=== PATIENT | male | born 1950 | race Caucasian/White ===

== ENCOUNTER 2016-11-12 19:19 | Inpatient (IN) | payer MEDICARE ==
[~2016-11-12] VITALS: Ht 180.3 cm; Wt 74.7 kg
[2016-11-12 19:28] VITALS: BP 122/70; PULSE 69; RESP 20; TEMP 97.9; O2SAT 91
[2016-11-12] MEDS ORDERED: MORPHINE SULFATE 4 MG/ML INJ IV PUSH ONE (19:45)
[2016-11-12] MEDS ORDERED: SODIUM CHLORIDE 0.9% FLUSH 10 ML FLUSH IVF PRN (19:45)
--- NOTE | 2016-11-12 19:46 | PD ---
HPI Chief Complaint: Fall Time Seen by Provider: 19:33 Travel History International Travel<30 days: No Contact w/Intl Traveler<30days: No Traveled to known affect area: No History of Present Illness HPI 66-year-old male with history of lung cancer, A. fib status post pacemaker/AICD , HTN here with complaint of leg pain. Patient states that he tripped, had a mechanical fall and landed on the right leg. Noted deformity and severe pain to the right hip/thigh region. EMS was summoned. Noted deformity in place patient in scoop stretcher and traction. Administered 10 mg morphine en route. Patient states that the pain has improved with this. He denies hitting his head, loss of consciousness, neck or back pain. Patient is anticoagulated on Plavix for history of A. fib. PFSH Past Medical History Atrial Fibrillation: Yes (pacer/defib) Cancer: Yes (lung) Diminished Hearing: No Hypertension: Yes Medical other: Yes (neuropathy) Tetanus Vaccination: < 5 Years Influenza Vaccination: Yes Past Surgical History Appendectomy: Yes Cardiac Surgery: Yes (pacer/defib) Cholecystectomy: Yes Tonsillectomy: Yes Social History Alcohol Use: Yes ("couple cocktails a day") Tobacco Use: Yes Substance Use: No Allergies-Medications (Allergen,Severity, Reaction): Coded Allergies: Acetaminophen (Verified Allergy, Severe, 11/12/16) edema and blisters Reported Meds & Prescriptions Reported Meds & Active Scripts Active Reported Trileptal (Oxcarbazepine) 150 Mg Tab 450 Mg PO TID Methadone (Methadone HCl) 10 Mg Tab 25 Mg PO QID Ativan (Lorazepam) 1 Mg Tab 1 Mg PO BID PRN [vitamin D] 10 Mg PO DAILY Amitriptyline (Amitriptyline HCl) 25 Mg Tab 25 Mg PO HS Furosemide 40 Mg Tab 40 Mg PO DAILY Plavix (Clopidogrel Bisulfate) 75 Mg Tab 75 Mg PO DAILY Levothyroxine (Levothyroxine Sodium) 75 Mcg Tab 75 Mcg PO DAILY Review of Systems Except as stated in HPI: all other systems reviewed are Neg Physical Exam Narrative GENERAL: Elderly male in no acute distress SKIN: Focused skin assessment warm/dry. HEAD: Atraumatic. Normocephalic. EYES: Pupils equal and round. No scleral icterus. No injection or drainage. ENT: No nasal bleeding or discharge. Mucous membranes pink and moist. NECK: Supple without midline tenderness to palpation CARDIOVASCULAR: Regular rate and rhythm. No murmur appreciated. Pacemaker left upper chest RESPIRATORY: No accessory muscle use. Clear to auscultation. Breath sounds equal bilaterally. GASTROINTESTINAL: Abdomen soft, non-tender, nondistended. MUSCULOSKELETAL: Bilateral upper and left lower extremity unremarkable. Pelvis is stable AP and lateral compression. Right lower extremity reveals deformity around the right hip and thigh. Tenderness to palpation and pain with any range of motion within this region. No tenderness to palpation of the knee, tib -fib, ankle or foot. Distal sensation and pulses intact. NEUROLOGICAL: Awake and alert. Normal speech. PSYCHIATRIC: Appropriate mood and affect; insight and judgment normal. Data Data Last Documented VS Vital Signs Date Time Temp Pulse Resp B/P Pulse Ox O2 Delivery O2 Flow Rate FiO2 11/12/16 19:33 93 Nasal Cannula 2 11/12/16 19:28 97.9 69 20 122/70 Orders Electrocardiogram (11/12/16 19:36) Complete Blood Count With Diff (11/12/16 19:36) Comprehensive Metabolic Panel (11/12/16 19:36) Prothrombin Time / Inr (Pt) (11/12/16 19:36) Act Partial Throm Time (Ptt) (11/12/16 19:36) Urinalysis - C+S If Indicated (11/12/16 19:36) Type And Screen (11/12/16 19:36) Chest, Single Ap (11/12/16 19:36) Femur (Ap & Lat/2vws) (11/12/16 19:36) Hip, Uni(Ap&Lat) W Ap Pelvis (11/12/16 19:36) Iv Access Insert/Monitor (11/12/16 19:36) Oximetry (11/12/16 19:36) Ice/Cold Pack (11/12/16 19:36) Ecg Monitoring (11/12/16 19:36) Morphine Inj (Morphine Inj) (11/12/16 19:45) Sodium Chloride 0.9% Flush (Ns Flush) (11/12/16 19:45) Support Splint (11/12/16 20:17) Potassium Chloride (Kcl) (11/12/16 20:45) Calcium Gluconate Inj (Calcium Gluconate (11/12/16 20:45) Calcium Gluconate (Calcium Gluconate) (11/12/16 20:45) Consult Orthopedic (11/12/16 ) Npo After Midnight W/ Po Meds (11/13/16 Breakfast) Labs Laboratory Tests Test 11/12/16 19:40 White Blood Count 9.7 TH/MM3 Red Blood Count 4.20 MIL/MM3 Hemoglobin 13.7 GM/DL Hematocrit 41.1 % Mean Corpuscular Volume 97.7 FL Mean Corpuscular Hemoglobin 32.5 PG Mean Corpuscular Hemoglobin 33.3 % Concent Red Cell Distribution Width 14.0 % Platelet Count 352 TH/MM3 Mean Platelet Volume 8.9 FL Neutrophils (%) (Auto) 74.0 % Lymphocytes (%) (Auto) 15.1 % Monocytes (%) (Auto) 8.8 % Eosinophils (%) (Auto) 1.5 % Basophils (%) (Auto) 0.6 % Neutrophils # (Auto) 7.2 TH/MM3 Lymphocytes # (Auto) 1.5 TH/MM3 Monocytes # (Auto) 0.9 TH/MM3 Eosinophils # (Auto) 0.1 TH/MM3 Basophils # (Auto) 0.1 TH/MM3 CBC Comment DIFF FINAL Differential Comment Prothrombin Time 11.4 SEC Prothromb Time International 1.0 RATIO Ratio Activated Partial 28.4 SEC Thromboplast Time Sodium Level 137 MEQ/L Potassium Level 2.7 MEQ/L Chloride Level 98 MEQ/L Carbon Dioxide Level 28.7 MEQ/L Anion Gap 10 MEQ/L Blood Urea Nitrogen 11 MG/DL Creatinine 0.85 MG/DL Estimat Glomerular Filtration 90 ML/MIN Rate Random Glucose 76 MG/DL Calcium Level 7.4 MG/DL Protein Corrected Calcium 7.4 MG/DL Total Bilirubin 0.2 MG/DL Aspartate Amino Transf 31 U/L (AST/SGOT) Alanine Aminotransferase 27 U/L (ALT/SGPT) Alkaline Phosphatase 147 U/L Total Protein 7.2 GM/DL Albumin 2.7 GM/DL Blood Type O POSITIVE Antibody Screen NEGATIVE Blood Bank Comment [facility] Medical Decision Making Medical Screen Exam Complete: Yes Emergency Medical Condition: Yes Medical Record Reviewed: Yes Differential Diagnosis 66-year-old male with history of lung cancer, A. fib on Plavix here with right leg pain status post mechanical fall. Differential includes femur fracture, hip fracture, pelvic fracture, pathologic fracture. Narrative Course Patient placed on monitor, IV established and blood obtained. Given 4 mg morphine. Twelve-lead EKG showed paced rhythm. CBC, CMP, coags, type and screen, urinalysis notable for potassium 2.7, calcium 7.4. Replaced with 80 mEq potassium orally, 1 g calcium gluconate IV as well as 500 mg cocaine gluconate orally. X-rays of the chest, pelvis, right hip and femur showed midshaft femur fracture. Left perihilar airspace disease on chest x-ray. I spoke with the orthopedic surgeon Dr. Wakefield who will plan to fix patient tomorrow. Request nothing by mouth after midnight. Patient was placed in [place]' s traction and will be admitted to medicine. Diagnosis Primary Impression: Right femoral fracture Additional Impressions: Hypokalemia Hypocalcemia Fall Qualified Code: W19.XXXA - Fall, initial encounter Atrial fibrillation Qualified Code: I48.2 - Chronic atrial fibrillation Admitting Information Admitting Physician Requests: Admit Maryuri López MD Nov 12, 2016 19:46
[2016-11-12] MEDS ORDERED: METH10TA PO ×2 (19:55→19:57)
[2016-11-12] MEDS ORDERED: PLAV75TA29 PO (19:55)
[2016-11-12] MEDS ORDERED: TRIL150T PO ×2 (19:55→19:57)
[2016-11-12] MEDS ORDERED: AMIT25TA9 PO (19:55)
[2016-11-12] MEDS ORDERED: LORA-474 PO (19:55)
[2016-11-12] MEDS ORDERED: FURO40TA PO (19:55)
[2016-11-12] MEDS ORDERED: vitamin D PO (19:55)
[2016-11-12] MEDS ORDERED: LEVO75TA3 PO (19:55)
[2016-11-12 20:20] VITALS: BP 130/74; PULSE 78; RESP 18; O2SAT 96
--- NOTE | 2016-11-12 20:22 | RADRPT ---
EXAM DATE/TIME: 11/12/2016 19:56 [facility] COMPARISON: No previous studies available for comparison. INDICATIONS : Trauma. Patient fell on right side today. MEDICAL HISTORY : Hypertension. Carcinoma, lung. Smoker. SURGICAL HISTORY : Pacemaker. Cholecystectomy. Appendectomy. ENCOUNTER: Initial ACUITY: 1 day PAIN SCORE: 0/10 LOCATION: Bilateral chest FINDINGS: Patient is overlie right atrium, right ventricle and coronary sinus. There is mild left perihilar and left basilar airspace disease. No effusion or pneumothorax. Heart size within normal limits. Tortuou s aorta. CONCLUSION: 1. Left perihilar airspace disease. No effusion or pneumothorax. Tobi Slater MD on November 12, 2016 at 20:19 Board Certified Radiologist. This report was verified electronically.
[2016-11-12 20:33] LABS: AUTOMATED NEUTROPHIL # 7.2 TH/MM3 (1.8-7.7); BASOPHIL # 0.1 TH/MM3 (0-0.2); BASOPHIL % 0.6 % (0.0-2.0); EOSINOPHIL # 0.1 TH/MM3 (0-0.4); EOSINOPHIL % 1.5 % (0.0-4.0); HEMATOCRIT 41.1 % (39.0-51.0); HEMO FLAGS DIFF FINAL; LYMPH % 15.1 % (9.0-44.0); LYMPHOCYTE # 1.5 TH/MM3 (1.0-4.8); MEAN CELL VOLUME 97.7 FL (80.0-100.0); MEAN CORPUSCULAR HEMOGLOBIN 32.5 PG (27.0-34.0); MEAN CORPUSCULAR HGB CONC 33.3 % (32.0-36.0); MONO % 8.8 % (0.0-8.0); PLATELET COUNT 352 TH/MM3 (150-450); WHITE BLOOD COUNT 9.7 TH/MM3 (4.0-11.0)
[2016-11-12 20:37] LABS: BICARBONATE 28.7 MEQ/L (21.0-32.0); TOTAL BILIRUBIN ADULT 0.2 MG/DL (0.2-1.0)
[2016-11-12 20:39] LABS: POTASSIUM 2.7 MEQ/L (3.5-5.1)
[2016-11-12 20:40] LABS: CALCIUM-PROTEIN CORRECTED 7.4 MG/DL (8.5-10.1)
[2016-11-12 20:41] LABS: APTT (PATIENT) 28.4 SEC (24.3-30.1); PROTHROMBIN TIME - PATIENT 11.4 SEC (9.8-11.6)
[2016-11-12] MEDS ORDERED: CALCIUM GLUCONATE 10% 1 GM/10 ML VIAL IV PUSH ONE (20:45)
[2016-11-12] MEDS ORDERED: POTASSIUM CHLORIDE 20 MEQ CONTROLLED RELEASE TAB PO ONE (20:45)
[2016-11-12] MEDS ORDERED: CALCIUM GLUCONATE 500 MG TAB PO ONE (20:45)
[2016-11-12 21:15] VITALS: BP 138/76; PULSE 70; RESP 18; O2SAT 96
--- NOTE | 2016-11-12 21:30 | RADRPT ---
EXAM DATE/TIME: 11/12/2016 19:50 [facility] COMPARISON: No previous studies available for comparison. INDICATIONS : Right femur pain after fall. MEDICAL HISTORY : None. SURGICAL HISTORY : Prior surgery to knee. ENCOUNTER: Initial ACUITY: 1 day PAIN SCORE: 10/10 LOCATION: Right femur. FINDINGS: There is a fracture through the midshaft of the right femur with about one shaft width displacement a nd mild angular deformity. Extensive vascular calcifications noted in the femoral and popliteal arter y. There is previous ACL repair. CONCLUSION: 1. Fracture midshaft right femur. Tobi Slater MD on November 12, 2016 at 21:27 Board Certified Radiologist. This report was verified electronically.
--- NOTE | 2016-11-12 21:42 | RADRPT ---
EXAM DATE/TIME: 11/12/2016 19:47 [facility] COMPARISON: No previous studies available for comparison. INDICATIONS : Trauma. Right leg pain after fall. MEDICAL HISTORY : None. SURGICAL HISTORY : Stents. ENCOUNTER: Initial ACUITY: 1 day PAIN SCORE: 10/10 LOCATION: Right femur. FINDINGS: No fracture at the right hip. There is a mid shaft right femur fracture. 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 CONCLUSION: 1. No hip fracture. Mid shaft right femur fracture. Right iliac artery stent present. Surgical clips in the inguinal regions bilaterally. Tobi Slater MD on November 12, 2016 at 21:40 Board Certified Radiologist. This report was verified electronically.
--- NOTE | 2016-11-12 21:51 | HHI.HP ---
[facility] Primary Care Physician No Primary Care Physician Admission Diagnosis R midshaft femur fx Diagnoses: (1) Fall Diagnosis: Principal (2) Right femoral fracture Diagnosis: Principal (3) Hypocalcemia Diagnosis: Principal (4) Hypokalemia Diagnosis: Principal (5) Tobacco abuse Diagnosis: Principal Travel History International Travel<30 Days: No Contact w/Intl Traveler <30 Da: No Traveled to Known Affected Are: No History of Present Illness This is a 66-year-old male with a PMH of HTN, A. fib, Lung CA and Tobacco Abuse who was brought to the ER by EMS secondary to right leg pain following fall. Per pt he had mechanical trip and fall while walking on sidewalk, landed on right leg w/ immediate complaints of pain. No LOC or head trauma reported. On arrival, BP 122/70, HR 69, O2 sat 91% on RA, Afebrile. CBC essentially unremarkable. K+ 2.7. Ca 7.4. INR 1.0. UA negative. CXR with left perihilar airspace disease, no effusion or pneumonia. Femur X-ray with fracture midshaft right femur. Hip/Pelvis X-ray with no hip fracture, midshaft right femur fracture, right iliac artery stent present. Dr. Wakefield consulted by ER physician, plan is for surgical intervention in a.m. Review of Systems Except as stated in HPI: all other systems reviewed are Neg ROS: 14 point review of systems otherwise negative. Past Family Social History Past Medical History PMH: HTN, A. fib, Lung CA and Tobacco Abuse Past Surgical History PAST SURGICAL HISTORY: Appendectomy, Cholecystectomy, Pacemaker Allergies: Coded Allergies: Acetaminophen (Verified Allergy, Severe, 11/12/16) edema and blisters Family History PAST FAMILY HISTORY: Reviewed. No h/o DM or CAD Social History PAST SOCIAL HISTORY: Positive for alcohol. Positive for tobacco. Negative for drugs. Physical Exam Vital Signs Vital Signs Date Time Temp Pulse Resp B/P Pulse Ox O2 Delivery O2 Flow Rate FiO2 11/12/16 19:33 93 Nasal Cannula 2 11/12/16 19:28 97.9 69 20 122/70 91 Physical Exam PE: GENERAL: Middle-aged white male in no acute distress. HEENT: PERRLA, EOMI. No scleral icterus or conjunctival pallor. No lid lag or facial droop. CARDIOVASCULAR: Regular rate and rhythm. No obvious murmurs to auscultation. No chest tenderness to palpation. RESPIRATORY: No obvious rhonchi or wheezing. Clear to auscultation. Breath sounds equal bilaterally. GASTROINTESTINAL: Abdomen soft, non-tender, nondistended. BS normal. MUSCULOSKELETAL: Extremities without clubbing, cyanosis, or edema. No obvious deformities. Decreased ROM of RLE due to injury. NEUROLOGICAL: Awake, alert and oriented x4. No focal neurologic deficits. Moving both upper and lower extremities spontaneously. Laboratory Laboratory Tests Test 11/12/16 19:40 White Blood Count 9.7 Red Blood Count 4.20 Hemoglobin 13.7 Hematocrit 41.1 Mean Corpuscular Volume 97.7 Mean Corpuscular Hemoglobin 32.5 Mean Corpuscular Hemoglobin 33.3 Concent Red Cell Distribution Width 14.0 Platelet Count 352 Mean Platelet Volume 8.9 Neutrophils (%) (Auto) 74.0 Lymphocytes (%) (Auto) 15.1 Monocytes (%) (Auto) 8.8 Eosinophils (%) (Auto) 1.5 Basophils (%) (Auto) 0.6 Neutrophils # (Auto) 7.2 Lymphocytes # (Auto) 1.5 Monocytes # (Auto) 0.9 Eosinophils # (Auto) 0.1 Basophils # (Auto) 0.1 CBC Comment DIFF FINAL Differential Comment Prothrombin Time 11.4 Prothromb Time International 1.0 Ratio Activated Partial 28.4 Thromboplast Time Sodium Level 137 Potassium Level 2.7 Chloride Level 98 Carbon Dioxide Level 28.7 Anion Gap 10 Blood Urea Nitrogen 11 Creatinine 0.85 Estimat Glomerular Filtration 90 Rate Random Glucose 76 Calcium Level 7.4 Protein Corrected Calcium 7.4 Total Bilirubin 0.2 Aspartate Amino Transf 31 (AST/SGOT) Alanine Aminotransferase 27 (ALT/SGPT) Alkaline Phosphatase 147 Total Protein 7.2 Albumin 2.7 Blood Type O POSITIVE Antibody Screen NEGATIVE Blood Bank Comment Result Diagram: 11/12/16193911/12/161939 Assessment and Plan Problem List: (1) Fall ICD Code: W19.XXXA Status: Acute (2) Right femoral fracture ICD Code: S72.91XA Status: Acute (3) Hypokalemia ICD Code: E87.6 Status: Acute (4) Hypocalcemia ICD Code: E83.51 Status: Acute (5) Tobacco abuse ICD Code: Z72.0 Status: Acute Assessment and Plan A/P: 1. Fall: s/p mechanical trip and fall, no LOC or head trauma reported. 2. Right Femur Fx: secondary to above, Femur X-ray w/ fracture mid shaft right femur. Hip/Pelvis X-ray with no hip fracture, midshaft right femur fracture, images reviewed by me. Dr. Wakefield consulted by ER physician, plan is for surgical intervention in a.m. NPO, IVF, analgesics/antiemetics as needed. 3. Hypokalemia: K+ 2.7, s/p replacement in ER. Will recheck and replace as needed. 4. Hypocalcemia: Ca 7.4, corrected 7.4, s/p replacement in ER. Recheck labs in am and replace as needed. 5. Tobacco Abuse: Pt counselled. NicoDerm prn if needed. 6. DVT Prophylaxis: Anticoagulation post-op per Ortho 7. Social work for d/c planning as needed. 8. Case discussed w/ ER physician at length. Physician Certification 2 Midnight Certification Type: Admission for Inpatient Services Order for Inpatient Services The services are ordered in accordance with Medicare regulations or non- Medicare payer requirements, as applicable. In the case of services not specified as inpatient-only, they are appropriately provided as inpatient services in accordance with the 2-midnight benchmark. Estimated LOS (days): 2 days is the estimated time the patient will need to remain in the hospital, assuming treatment plan goals are met and no additional complications. Post-Hospital Plan: Not yet determined Problem Qualifiers (1) Fall: Qualified Code: W19.XXXA - Fall, initial encounter (2) Right femoral fracture: Margo Aceves MD Nov 12, 2016 21:51
[2016-11-12] MEDS ORDERED: LORazepam 1 MG TAB PO PRN (22:00)
[2016-11-12] MEDS ORDERED: SENNOSIDES 8.6 MG TAB PO PRN (22:00)
[2016-11-12] MEDS ORDERED: ONDANSETRON HCL 4 MG/2 ML VIAL IVP PRN (22:00)
[2016-11-12] MEDS ORDERED: BISACODYL 10 MG SUPP RECTAL PRN (22:00)
[2016-11-12] MEDS ORDERED: LACTULOSE SYRUP 20 GM/30 ML CUP PO PRN (22:00)
[2016-11-12] MEDS ORDERED: MAGNESIUM HYDROXIDE SUSP 30 ML CUP PO PRN (22:00)
[2016-11-12] MEDS ORDERED: SODIUM CHLORIDE 0.9% FLUSH 10 ML FLUSH IV FLUSH PRN (22:00)
[2016-11-12] MEDS: SODIUM CHLOR 0.9% 1000 ML INJ 1,000 ML IV SCH (22:30)
[2016-11-12 22:31] VITALS: BP 120/68; PULSE 75; RESP 18; O2SAT 97
[2016-11-12] MEDS: MORPHINE SULFATE 4 MG/ML INJ IV PRN (22:31)
[2016-11-12 22:43] LABS: BLOOD, URINE NEG (NEG); GLUCOSE,URINE NEG (NEG); HYALINE CAST, URINE 2 /lpf (RARE); KETONE, URINE NEG (NEG); NITRITE,URINE NEG (NEG); PH, URINE 6.5 (5.0-8.5); URINE COLOR YELLOW (YELLW/STRAW)
[2016-11-12 22:45] LABS: COMMENT (UR) CATH-CULT NOT IND; CULTURE IF INDICATED CATH CULTURE NOT IND
[2016-11-12 23:41] VITALS: BP 137/67
[2016-11-13] VITALS (7 sets, daily range): BP systolic 112–148; BP diastolic 64–73; PULSE 61–69; RESP 17–18; TEMP 96.6–98.7; O2SAT 92–98
[2016-11-13] MEDS: MORPHINE SULFATE 4 MG/ML INJ IV PRN ×2 (01:40→06:07)
[2016-11-13] MEDS: LEVOTHYROXINE SODIUM 75 MCG TAB PO SCH (03:13)
[2016-11-13] MEDS ORDERED: GENTAMICIN SULFATE 80 MG/2 ML VIAL ONE (06:02)
[2016-11-13] MEDS ORDERED: FAMOTIDINE 20 MG/2 ML VIAL ONE (07:37)
[2016-11-13] MEDS: SODIUM CHLOR 0.9% 1000 ML INJ 1,000 ML IV SCH ×2 (07:42→15:22)
[2016-11-13] MEDS: METHADONE HCL 10 MG TAB PO SCH ×4 (07:43→20:58)
[2016-11-13] MEDS: FUROSEMIDE 40 MG TAB PO SCH (07:43)
[2016-11-13] MEDS ORDERED: ceFAZolin 2 GM PREMIX 50 ML ONE (08:20)
[2016-11-13] MEDS ORDERED: VANCOMYCIN HCL 1000 MG VIAL ONE (08:20)
[2016-11-13] MEDS ORDERED: ENOX30P SQ (08:22)
[2016-11-13] MEDS ORDERED: OXYC-395 PO (08:23)
[2016-11-13] MEDS ORDERED: NALOXONE HCL 0.4 MG/ML AMP IV PRN (08:30)
[2016-11-13] MEDS ORDERED: MISCELLANEOUS NURSING INFORMATION XX PRN (08:30)
[2016-11-13] MEDS ORDERED: Post-op Orders (for Pharmacy) MISC XX ONE (08:30)
[2016-11-13] MEDS ORDERED: diphenhydrAMINE HCL 25 MG CAP PO PRN (08:30)
[2016-11-13] MEDS ORDERED: MAGNESIUM HYDROXIDE SUSP 30 ML CUP PO PRN (08:30)
[2016-11-13] MEDS ORDERED: ONDANSETRON HCL 4 MG/2 ML VIAL IVP PRN (08:30)
[2016-11-13] MEDS ORDERED: MISCELLANEOUS PHARMACY INFORMATION XX ONE (08:30)
[2016-11-13] MEDS ORDERED: TRANEXAMIC ACID INJ 1,000 MG/10 ML AMP ONE (08:50)
[2016-11-13] MEDS: MULTIVITAMINS/MINERALS THERAPEUTIC TAB PO SCH (09:00)
[2016-11-13] MEDS: DOCUSATE SODIUM 50 MG/SENNA 8.6 MG TAB PO SCH ×2 (09:00→20:57)
[2016-11-13] MEDS ORDERED: SODIUM CHLORIDE 0.9% FLUSH 10 ML FLUSH IV FLUSH SCH (09:00)
[2016-11-13] MEDS ORDERED: DOCUSATE SODIUM 50 MG/SENNA 8.6 MG TAB PO SCH (09:00)
[2016-11-13] MEDS: SODIUM CHLORIDE 0.9% FLUSH 5 ML FLUSH IVF SCH (09:00)
--- NOTE | 2016-11-13 09:13 | MB ---
cc: CHILO DEE M.D. DATE OF CONSULTATION: 11/13/2016 REASON FOR CONSULTATION Right femur fracture. HISTORY OF PRESENT ILLNESS The patient is a 66-year-old male with past history of hypertension, atrial fibrillation, lung cancer and tobacco abuse, brought to the emergency room at [facility] after a fall. He was complaining of severe pain in the right leg and thigh region. He had mechanical trip on a sidewalk, he was unable to stand or bear weight. Pain was severe with worsening symptoms with any movement of the leg or attempted bearing of weight. He denies loss of consciousness or hitting his head. X-rays of the right femur shows a displaced right femoral shaft fracture. He has been admitted to medical service, orthopedic surgery was consulted for further evaluation and management of this injury and condition. PAST MEDICAL HISTORY Significant for: 1. Hypertension. 2. Atrial fibrillation. 3. Lung cancer. 4. Tobacco abuse. 5. History of peripheral vascular disease. 6. History of right iliac artery stenting. 7. History of appendectomy. 8. Cholecystectomy. 9. Pacemaker. ALLERGIES Include ACETAMINOPHEN. FAMILY HISTORY Reviewed and noncontributory. SOCIAL HISTORY Positive for alcohol and tobacco, negative for drugs. REVIEW OF SYSTEMS Review of systems are negative for 12 systems other than HPI. MEDICATIONS Include: 1. Methadone. 2. Ativan. 3. Amitriptyline. 4. Lasix. 5. Plavix. 6. Levothyroxine. PHYSICAL EXAMINATION GENERAL: The patient is awake, alert, lying in bed, in mild distress. HEENT: Normocephalic, atraumatic. Pupils are round. Extraocular muscles intact. NECK: Neck is supple. LUNGS: Clear. HEART: Regular rate and rhythm. ABDOMEN: Soft, nontender. EXTREMITIES: Right leg is currently in skeletal traction. He can flex his ankle and toes distally. He has swelling of the right thigh, his compartments are still soft. His mood and affect is appropriate. NEUROLOGIC: Exam is nonfocal. VITAL SIGNS: Temperature 97.9, pulse 69, respiration 20, blood pressure 120/70. IMAGING STUDIES X-ray of the right femur shows a displaced right femoral shaft fracture. LABORATORY DATA White blood cell count is 9.7, hemoglobin is 13, hematocrit 41, platelet count 352, potassium 2.7, creatinine 0.85. IMPRESSION A 66-year-old male with past history of atrial fibrillation on Plavix, history of lung cancer, tobacco and alcohol abuse, peripheral vascular disease status post fall, right femur fracture. PLAN Discussed diagnosis with the patient and treatment options of nonoperative treatment versus surgery, spoke about the option of open reduction, internal fixation with intramedullary nailing of the right femur fracture. The risk of surgery was discussed which included but not limited to anesthesia, bleeding, infection, damage to nerves, blood vessels, pain, stiffness, failure of components, blood clots, pulmonary embolism and even . The patient's pain is severe, he favored the benefits over the risks and did wish to proceed with surgical intervention. Written consent has been obtained and the surgical site has been marked. MD MADI Fleming/SRI /8:24 AM /8:46 AM
[2016-11-13] MEDS ORDERED: RESP: ALBUTEROL 1.25 MG/3 ML NEB (PRN) ONE (09:25)
--- NOTE | 2016-11-13 09:55 | RADRPT ---
EXAM DATE/TIME: 11/13/2016 09:32 [facility] COMPARISON: FEMUR RIGHT (AP & LAT/2VWS), November 12, 2016, 19:50. INDICATIONS : Surgical repair. MEDICAL HISTORY : None. SURGICAL HISTORY : None. ENCOUNTER: Initial ACUITY: 1 day PAIN SCORE: Non-responsive. LOCATION: Right femur. FINDINGS: 6 spot fluoroscopic images obtained in the operating room during a procedure demonstrates placement o f an antegrade intramedullary wanda with distal interlocking screws and a proximal femoral head and nec k screw. The wanda traverses the mid femoral diaphyseal fracture and there is improved anatomic alignme nt. A bone anchor remains present in the distal femur. CONCLUSION: Improved anatomic alignment following right femur ORIF. Richmond Lopez MD on November 13, 2016 at 9:52 Board Certified Radiologist. This report was verified electronically.
[2016-11-13] MEDS ORDERED: DO NOT ADM ANY ANTICOAGULANT DRUGS PRN (10:02)
[2016-11-13] MEDS: DEXT 5%-NACL 0.45% 1000 ML INJ 1,000 ML IV SCH ×2 (10:15→15:28)
[2016-11-13] MEDS ORDERED: fentaNYL CITRATE 250 MCG/5 ML AMP ONE (10:36)
[2016-11-13] MEDS ORDERED: MIDAZOLAM HCL 2 MG/2 ML VIAL ONE (10:36)
--- NOTE | 2016-11-13 11:33 | MP ---
cc: CHILO DEE M.D. DATE OF SURGERY: PREOPERATIVE DIAGNOSIS: Right femoral shaft fracture. POSTOPERATIVE DIAGNOSES: Right femoral shaft fracture. OPERATIVE PROCEDURE PERFORMED: Open reduction internal fixation with intramedullary nailing right femoral shaft fracture. SURGEON: Chilo Dee M.D. TUBE BUILDER: Khloe Agosto ANESTHESIA: General. ESTIMATED BLOOD LOSS: 200 cc. COMPLICATIONS: None. IMPLANTS USED: Synthes. JUSTIFICATION FOR THE PROCEDURE: This patient is a 66-year-old male who fell and sustained a displaced right femoral shaft fracture. He was taken to the [facility] Emergency Room. X-rays confirmed the above-named findings. Orthopedic surgery was consulted. The patient was counselled as to the risks, benefits and alternatives to the above-named proposed surgical procedure and did wish to proceed with surgery. DESCRIPTION OF THE PROCEDURE IN DETAIL: A written consent was obtained. The patient was identified by name and taken to the operating room and placed supine. General anesthesia was administered as well as 2 grams of IV Ancef and 1 gram of IV Vancomycin. The right foot was placed in a padded traction boot. The left leg was placed in a padded well leg crane. All bony prominences and pressure points were well padded. The right lower extremity was prepped and draped using isopropyl alcohol, Hibiclens solution and DuraPrep solution. After a time out was performed, a longitudinal incision was made over the lateral aspect of the right hip. The fascial layer was incised. A guidewire was used to gain entrance into the intramedullary canal of the femur. A cannulated entry reamer and subsequently a long beaded tip guidewire was placed down the intramedullary canal of the femur. Multiple reduction maneuvers were performed to allow for passage of the guidewire and longitudinal traction to assist with reduction of the fracture. Subsequently sequential reaming began with a size 8.5 and was carried through to size 13 and subsequently a Synthes 12 x 400 mm titanium trochanteric femoral nail was inserted into the intramedullary canal of the femur. The 130 degree locking jig was used to place a guide pin centered in the femoral head on the AP and lateral fluoroscopic projections followed by placement of a 90 mm spiral blade. The top locking screw was then secured with a fixed angle construct distally. The fluoroscopic perfect [place] technique was used to place a lateral to medial transverse locking screw. Fluoroscopic imaging confirmed hardware placement and fracture reduction. The surgical wound was thoroughly irrigated with sterile saline solution. The fascial layer was closed with #1 Vicryl stitch, subcutaneous layer with 2-0 Vicryl. The skin was closed with Dermabond. Sterile dressings were applied. The patient tolerated the procedure well. No intraoperative complications noted. NOTE Alvaro Zamora, physician assistant producer-certified, was present during the entire procedure to include patient positioning and the procedure itself. The medical necessity of a physician assistant producer was indicated in this case due to the complexity of the procedure itself. He assisted with appropriate manipulation of the leg and also retraction of muscle, tendon, bone and neurovascular structures. He also assisted with fracture reduction as well as implantation of the internal fixation device. MD MADI Fleming/ISMAEL /9:42 AM /11:12 AM
[2016-11-13] MEDS ORDERED: PHENYLEPH/NS 1000 MCG/10 ML SYR IV ONE (12:00)
[2016-11-13] MEDS ORDERED: PROPOFOL 200 MG/20 ML AMP IV ONE (12:00)
[2016-11-13] MEDS ORDERED: ePHEDrine/NS 25 MG/5 ML SYR IV ONE (12:00)
[2016-11-13] MEDS ORDERED: ONDANSETRON HCL 4 MG/2 ML VIAL IV PUSH ONE (12:00)
[2016-11-13] MEDS ORDERED: LACTATED RINGER'S 1000 ML INJ 1,000 ML IV ONE (12:00)
[2016-11-13] MEDS: MORPHINE SULFATE 4 MG/ML INJ IV PUSH PRN ×3 (12:56→20:58)
[2016-11-13 15:22] LABS: AUTOMATED NEUTROPHIL # 16.1 TH/MM3 (1.8-7.7); BASOPHIL % 0.1 % (0.0-2.0); HEMATOCRIT 37.5 % (39.0-51.0); HEMO FLAGS DIFF FINAL; LYMPHOCYTE # 0.3 TH/MM3 (1.0-4.8); MEAN CELL VOLUME 98.1 FL (80.0-100.0); MEAN CORPUSCULAR HEMOGLOBIN 32.5 PG (27.0-34.0); MEAN CORPUSCULAR HGB CONC 33.1 % (32.0-36.0); MONO % 3.8 % (0.0-8.0); NEUT % 94.1 % (16.0-70.0); PLATELET COUNT 310 TH/MM3 (150-450); RED BLOOD COUNT 3.82 MIL/MM3 (4.50-5.90); RED CELL DISTRIBUTION WIDTH 14.3 % (11.6-17.2); WHITE BLOOD COUNT 17.1 TH/MM3 (4.0-11.0)
[2016-11-13 15:39] LABS: ALKALINE PHOSPHATASE 130 U/L (45-117); ALT (GPT) 27 U/L (12-78); ANION GAP 7 MEQ/L (5-15); AST (GOT) 27 U/L (15-37); BICARBONATE 29.7 MEQ/L (21.0-32.0); BLOOD UREA NITROGEN 10 MG/DL (7-18); CHLORIDE 101 MEQ/L (98-107); GLOMERULAR FILTRATION RATE 88 ML/MIN (>89); POTASSIUM 3.5 MEQ/L (3.5-5.1); SODIUM (NA) 138 MEQ/L (136-145); TOTAL BILIRUBIN ADULT 0.4 MG/DL (0.2-1.0)
--- NOTE | 2016-11-13 17:56 | EKG ---
Date Performed: 11/12/2016 Time Performed: 21:19:00 PTAGE: 66 years EKG: ELECTRONIC VENTRICULAR PACEMAKER ABNORMAL RHYTHM ECG NO PREVIOUS TRACING DOCTOR: Saji Berger Interpretating Date/Time 11/13/2016 17:55:37
--- NOTE | 2016-11-13 18:54 | HHI.PR ---
Subjective Remarks patient states pain is uncontrolled sp ORIF of right femorl shaft fracture denies nausea/vomiting denies cp/sob Objective Vitals Vital Signs Date Time Temp Pulse Resp B/P Pulse Ox O2 Delivery O2 Flow Rate FiO2 11/13/16 16:02 98 21 11/13/16 16:00 97.4 61 18 112/67 92 11/13/16 12:30 93 Nasal Cannula 3.00 11/13/16 12:00 96.6 64 18 130/67 97 11/13/16 10:30 98.0 68 14 124/61 95 Nasal Cannula 2 11/13/16 10:15 75 16 123/59 98 Nasal Cannula 2 11/13/16 10:00 98.2 80 17 123/60 99 Simple Mask 6 11/13/16 04:10 98.5 65 17 148/71 93 11/13/16 00:20 98.7 69 17 134/73 94 11/12/16 23:41 68 18 137/67 95 11/12/16 22:31 75 18 120/68 97 Nasal Cannula 2 11/12/16 21:15 70 18 138/76 96 Nasal Cannula 2 11/12/16 20:20 78 18 130/74 96 Nasal Cannula 2 11/12/16 19:33 93 Nasal Cannula 2 11/12/16 19:28 97.9 69 20 122/70 91 I/O 11/12/16 11/12/16 11/12/16 11/13/16 11/13/16 11/13/16 06:59 14:59 22:59 06:59 14:59 22:59 Intake Total 630 ml 2060 ml Output Total 450 ml 50 ml Balance 180 ml 2010 ml Intake Oral 0 ml 960 ml IV Total 630 ml Other 1100 ml Output Urine Total 450 ml Estimated Blood Loss 50 ml # Voids 2 # Bowel Movements 0 0 Result Diagram: 11/13/16 1426 11/13/16 1426 Imaging Last Impressions Femur X-Ray 11/13/16 0000 Signed Impressions: Service Date/Time: Sunday, November 13, 2016 09:32 - CONCLUSION: Improved anatomic alignment following right femur ORIF. Richmond Lopez MD Hip and Pelvis X-Ray 11/12/16 1936 Signed Impressions: Service Date/Time: Saturday, November 12, 2016 19:47 - CONCLUSION: 1. No hip fracture. Mid shaft right femur fracture. Right iliac artery stent present. Surgical clips in the inguinal regions bilaterally. Tobi Slater MD Chest X-Ray 11/12/161935 Signed Impressions: Service Date/Time: Saturday, November 12, 2016 19:56 - CONCLUSION: 1. Left perihilar airspace disease. No effusion or pneumothorax. Tobi Slater MD Objective Remarks AAOx3, nad clear lungs s1 s2 present RRR abdomen, soft, non tender right thigh has drape in place, there is no hematoma. Pedal pulses are palpable Medications and IVs Current Medications Medications (Trade) Dose Ordered Sig/Morgan Route Start Time Stop Time Status Last Admin (NS 1000 ml Inj) 1,000 ml @ 100 mls/hr Q10H IV 11/12/16 21:48 11/12/16 22:30 (Zofran Inj) 4 mg Q6H PRN IVP 11/12/16 22:00 (Morphine Inj) 2 mg Q3H PRN IV 11/12/16 22:00 11/13/16 06:07 (Roxicodone) 5 mg Q4H PRN PO 11/12/16 22:00 11/13/16 23:34 (Milk Of Magnesia Liq) 30 ml Q12H PRN PO 11/12/16 22:00 (Senokot) 17.2 mg Q12H PRN PO 11/12/16 22:00 (Dulcolax Supp) 10 mg DAILY PRN RECTAL 11/12/16 22:00 (Lactulose Liq) 30 ml DAILY PRN PO 11/12/16 22:00 (Elavil) 25 mg HS PO 11/13/16 21:00 11/13/16 20:57 (Lasix) 40 mg DAILY PO 11/13/16 09:00 (Synthroid) 75 mcg DAILY@07 PO 11/13/16 07:00 (Ativan) 1 mg BID PRN PO 11/12/16 22:00 11/12/16 23:07 Methadone HCl 25 mg 25 mg QID PO 11/13/16 09:00 11/13/16 20:58 (D5W-1/2 NS 1000 ml Inj) 1,000 ml @ 100 mls/hr Q10H IV 11/13/16 08:20 11/13/16 10:15 (NS Flush) 2 ml UNSCH PRN IVF 11/13/16 08:30 (NS Flush) 2 ml BID IVF 11/13/16 09:00 (Lovenox Inj) 30 mg Q24H SQ 11/14/16 09:00 (Antonette-Colace) 1 tab BID PO 11/13/16 09:00 11/13/16 20:57 Magnesium Hydroxide 10 ml 10 ml Q12H PRN PO 11/13/16 08:30 (Ancef Inj/NS Inj) 100 ml @ 200 mls/hr Q8H IV 11/13/16 17:00 11/14/16 01:12 Miscellaneous Information UNSCH PRN XX 11/13/16 08:30 (Morphine Inj) 3 mg Q3H PRN IV PUSH 11/13/16 08:30 11/14/16 01:12 (Zofran Inj) 4 mg Q4H PRN IVP 11/13/16 08:30 (Theragran M Tab) 1 tab DAILY PO 11/13/16 09:00 (Benadryl) 25 mg Q6H PRN PO 11/13/16 08:30 (Narcan Inj) 0.4 mg UNSCH PRN IV 11/13/16 08:30 Miscellaneous Information ALL NURSING DEPARTME... UNSCH PRN .XX 11/13/16 10:02 11/14/16 10:01 (D50w (Vial) Inj) 50 ml UNSCH PRN IV 11/13/16 19:00 (Glucagon Inj) 1 mg UNSCH PRN OTHER 11/13/16 19:00 (Dilaudid Pf Inj) 1 mg Q4H PRN IV PUSH 11/13/16 19:00 A/P Problem List: (1) Fall ICD Code: W19.XXXA Status: Acute (2) Right femoral fracture ICD Code: S72.91XA Status: Acute (3) Hypokalemia ICD Code: E87.6 Status: Acute (4) Hypocalcemia ICD Code: E83.51 Status: Acute (5) Tobacco abuse ICD Code: Z72.0 Status: Acute Assessment and Plan 1. Fall: s/p mechanical trip and fall, no LOC or head trauma reported. 2. Right Femur Fx: secondary to above, Femur X-ray w/ fracture mid shaft right femur. Hip/Pelvis X-ray with no hip fracture, midshaft right femur fracture, images reviewed by me. Dr. Wakefield consulted by ER 11/13 patient is sp ORIF of the right femoral shaft fracture. Patient states pain is uncontrolled. I will add IV Dilaudid for breakthrough pain. 3. Hypokalemia: K+ 2.7, s/p replacement in ER. Levels normal now at 3.5. Continue to monitor bmp 4. Hypocalcemia: Ca 7.4, corrected 7.4, s/p replacement in ER. replaced. 5. Tobacco Abuse: Pt counselled. NicoDerm prn if needed. 6. DVT Prophylaxis: Anticoagulation post-op per Ortho 7. Social work for d/c planning as needed. Problem Qualifiers (1) Fall: Qualified Code: W19.XXXA - Fall, initial encounter (2) Right femoral fracture: Jovanni Cornell MD Nov 13, 2016 18:54
[2016-11-13] MEDS ORDERED: GLUCAGON 1 MG/ML VIAL OTHER PRN (19:00)
[2016-11-13] MEDS ORDERED: HYDROmorphone HCL PF 1 MG/ML VIAL IV PUSH PRN (19:00)
[2016-11-13] MEDS ORDERED: DEXTROSE 50% IN WATER 50 ML VIAL(D50) IV PRN (19:00)
[2016-11-13] MEDS: INSULIN ASPART SUPPLEMENTAL SCALE SQ SCH (20:57)
[2016-11-13] MEDS: AMITRIPTYLINE HCL 25 MG TAB PO SCH (20:57)
[2016-11-14] VITALS (7 sets, daily range): BP systolic 112–152; BP diastolic 66–81; PULSE 63–76; RESP 16–17; TEMP 98.8–99.2; O2SAT 92–95
[2016-11-14] MEDS: MORPHINE SULFATE 4 MG/ML INJ IV PUSH PRN ×3 (01:12→19:12)
[2016-11-14] MEDS: DEXT 5%-NACL 0.45% 1000 ML INJ 1,000 ML IV SCH ×3 (04:20→23:21)
[2016-11-14] MEDS: LEVOTHYROXINE SODIUM 75 MCG TAB PO SCH (05:17)
[2016-11-14] MEDS: INSULIN ASPART SUPPLEMENTAL SCALE SQ SCH ×4 (06:22→20:08)
[2016-11-14 08:33] LABS: AUTOMATED NEUTROPHIL # 9.2 TH/MM3 (1.8-7.7); BASOPHIL # 0.1 TH/MM3 (0-0.2); BASOPHIL % 0.7 % (0.0-2.0); EOSINOPHIL # 0.2 TH/MM3 (0-0.4); EOSINOPHIL % 1.6 % (0.0-4.0); HEMATOCRIT 34.3 % (39.0-51.0); HEMO FLAGS DIFF FINAL; LYMPH % 11.6 % (9.0-44.0); LYMPHOCYTE # 1.4 TH/MM3 (1.0-4.8); MEAN CORPUSCULAR HEMOGLOBIN 32.2 PG (27.0-34.0); MEAN CORPUSCULAR HGB CONC 33.2 % (32.0-36.0); MONO % 8.1 % (0.0-8.0); PLATELET COUNT 305 TH/MM3 (150-450); RED BLOOD COUNT 3.54 MIL/MM3 (4.50-5.90); RED CELL DISTRIBUTION WIDTH 13.8 % (11.6-17.2); WHITE BLOOD COUNT 11.7 TH/MM3 (4.0-11.0)
[2016-11-14] MEDS: ENOXAPARIN SODIUM 30 MG/0.3 ML SYRINGE SQ SCH (09:00)
[2016-11-14] MEDS: SODIUM CHLORIDE 0.9% FLUSH 5 ML FLUSH IVF SCH ×2 (09:00→20:08)
[2016-11-14] MEDS: MULTIVITAMINS/MINERALS THERAPEUTIC TAB PO SCH (09:02)
[2016-11-14] MEDS: FUROSEMIDE 40 MG TAB PO SCH (09:02)
[2016-11-14] MEDS: METHADONE HCL 10 MG TAB PO SCH ×4 (09:02→20:07)
[2016-11-14] MEDS: DOCUSATE SODIUM 50 MG/SENNA 8.6 MG TAB PO SCH ×2 (09:02→20:06)
[2016-11-14 09:14] LABS: ALT (GPT) 25 U/L (12-78); ANION GAP 9 MEQ/L (5-15); AST (GOT) 31 U/L (15-37); BICARBONATE 26.5 MEQ/L (21.0-32.0); BLOOD UREA NITROGEN 8 MG/DL (7-18); CHLORIDE 99 MEQ/L (98-107); GLOMERULAR FILTRATION RATE 111 ML/MIN (>89); MAGNESIUM 1.6 MG/DL (1.5-2.5); POTASSIUM 3.7 MEQ/L (3.5-5.1); SODIUM (NA) 134 MEQ/L (136-145)
[2016-11-14 09:17] LABS: ALKALINE PHOSPHATASE 122 U/L (45-117); TOTAL BILIRUBIN ADULT 0.5 MG/DL (0.2-1.0)
--- NOTE | 2016-11-14 12:39 | PD.ORT.PN ---
Subjective Post Op Day #: 1 Subjective Remarks painful. takes chronic pain meds Objective Vitals Vital Signs Date Time Temp Pulse Resp B/P Pulse Ox O2 Delivery O2 Flow Rate FiO2 11/14/16 11:06 99.0 63 16 133/78 92 11/14/16 08:11 99.0 68 16 134/76 92 11/14/16 04:36 98.9 64 17 114/72 94 11/14/16 00:36 98.8 66 17 115/66 94 11/13/16 20:45 98.1 65 17 119/64 95 11/13/16 16:02 98 21 11/13/16 16:00 97.4 61 18 112/67 92 I/O 11/13/16 11/13/16 11/13/16 11/14/16 11/14/16 11/14/16 07:00 15:00 23:00 07:00 15:00 23:00 Intake Total 630 ml 2060 ml 360 ml 360 ml Output Total 450 ml 50 ml 600 ml 850 ml Balance 180 ml 2010 ml -240 ml -490 ml Intake Oral 0 ml 960 ml 360 ml 360 ml IV Total 630 ml Other 1100 ml Output Urine Total 450 ml 600 ml 850 ml Estimated Blood Loss 50 ml # Voids 2 # Bowel Movements 0 0 0 0 Result Diagram: 11/14/16 0750 11/14/16 0750 Objective Remarks in bed, nad dressing c/d/i thigh soft neg homans nvi Assessment & Plan Ortho Post Op Day #: 1 Problem List: Assessment and Plan s/p R Long Troch Nail for femoral shaft fx wbat daily dressing changes lovenox d/c planning snf vs home with [facility] f/up dr. vital 2 weeks Arturo Zamora Nov 14, 2016 12:39
[2016-11-14] MEDS: SODIUM CHLOR 0.9% 1000 ML INJ 1,000 ML IV SCH (13:48)
--- NOTE | 2016-11-14 16:25 | HHI.PR ---
Subjective Remarks patient noted to be coughing denies fevers/chills mild sob o2 sats trending down 92% on nasal canula Objective Vitals Vital Signs Date Time Temp Pulse Resp B/P Pulse Ox O2 Delivery O2 Flow Rate FiO2 11/14/16 11:06 99.0 63 16 133/78 92 11/14/16 09:10 92 21 11/14/16 08:11 99.0 68 16 134/76 92 11/14/16 04:36 98.9 64 17 114/72 94 11/14/16 00:36 98.8 66 17 115/66 94 11/13/16 20:45 98.1 65 17 119/64 95 I/O 11/13/16 11/13/16 11/13/16 11/14/16 11/14/16 11/14/16 07:00 15:00 23:00 07:00 15:00 23:00 Intake Total 630 ml 2060 ml 360 ml 360 ml Output Total 450 ml 50 ml 600 ml 850 ml Balance 180 ml 2010 ml -240 ml -490 ml Intake Oral 0 ml 960 ml 360 ml 360 ml IV Total 630 ml Other 1100 ml Output Urine Total 450 ml 600 ml 850 ml Estimated Blood Loss 50 ml # Voids 2 # Bowel Movements 0 0 0 0 Result Diagram: 11/14/16 0750 11/14/16 0750 Imaging Last Impressions Femur X-Ray 11/13/16 0000 Signed Impressions: Service Date/Time: Sunday, November 13, 2016 09:32 - CONCLUSION: Improved anatomic alignment following right femur ORIF. Richmond Lopez MD Hip and Pelvis X-Ray 11/12/161935 Signed Impressions: Service Date/Time: Saturday, November 12, 2016 19:47 - CONCLUSION: 1. No hip fracture. Mid shaft right femur fracture. Right iliac artery stent present. Surgical clips in the inguinal regions bilaterally. Tobi Slater MD Chest X-Ray 11/12/161935 Signed Impressions: Service Date/Time: Saturday, November 12, 2016 19:56 - CONCLUSION: 1. Left perihilar airspace disease. No effusion or pneumothorax. Tobi Slater MD Objective Remarks AAOx3, nad diffuse BL inspiratory and expiratory wheezing s1 s2 present RRR abdomen, soft, non tender right thigh has drape in place, there is no hematoma. Pedal pulses are palpable Medications and IVs Current Medications Medications (Trade) Dose Ordered Sig/Morgan Route Start Time Stop Time Status Last Admin (Zofran Inj) 4 mg Q6H PRN IVP 11/12/16 22:00 (Morphine Inj) 2 mg Q3H PRN IV 11/12/16 22:00 11/13/16 06:07 (Roxicodone) 5 mg Q4H PRN PO 11/12/16 22:00 11/14/16 16:51 (Milk Of Magnesia Liq) 30 ml Q12H PRN PO 11/12/16 22:00 (Senokot) 17.2 mg Q12H PRN PO 11/12/16 22:00 (Dulcolax Supp) 10 mg DAILY PRN RECTAL 11/12/16 22:00 (Lactulose Liq) 30 ml DAILY PRN PO 11/12/16 22:00 (Elavil) 25 mg HS PO 11/13/16 21:00 11/13/16 20:57 (Lasix) 40 mg DAILY PO 11/13/16 09:00 11/14/16 09:02 (Synthroid) 75 mcg DAILY@07 PO 11/13/16 07:00 11/14/16 05:17 (Ativan) 1 mg BID PRN PO 11/12/16 22:00 11/12/16 23:07 Methadone HCl 25 mg 25 mg QID PO 11/13/16 09:00 11/14/16 16:52 (D5W-1/2 NS 1000 ml Inj) 1,000 ml @ 100 mls/hr Q10H IV 11/13/16 08:20 11/13/16 10:15 (NS Flush) 2 ml UNSCH PRN IVF 11/13/16 08:30 (NS Flush) 2 ml BID IVF 11/13/16 09:00 11/14/16 09:00 (Lovenox Inj) 30 mg Q24H SQ 11/14/16 09:00 11/14/16 09:00 (Antonette-Colace) 1 tab BID PO 11/13/16 09:00 11/14/16 09:02 Magnesium Hydroxide 10 ml 10 ml Q12H PRN PO 11/13/16 08:30 (Ancef Inj/NS Inj) 100 ml @ 200 mls/hr Q8H IV 11/13/16 17:00 11/14/16 16:51 Miscellaneous Information UNSCH PRN XX 11/13/16 08:30 (Morphine Inj) 3 mg Q3H PRN IV PUSH 11/13/16 08:30 11/14/16 10:38 (Zofran Inj) 4 mg Q4H PRN IVP 11/13/16 08:30 (Theragran M Tab) 1 tab DAILY PO 11/13/16 09:00 11/14/16 09:02 (Benadryl) 25 mg Q6H PRN PO 11/13/16 08:30 (Narcan Inj) 0.4 mg UNSCH PRN IV 11/13/16 08:30 (D50w (Vial) Inj) 50 ml UNSCH PRN IV 11/13/16 19:00 (Glucagon Inj) 1 mg UNSCH PRN OTHER 11/13/16 19:00 (Dilaudid Pf Inj) 1 mg Q4H PRN IV PUSH 11/13/16 19:00 A/P Problem List: (1) Fall ICD Code: W19.XXXA Status: Acute (2) Right femoral fracture ICD Code: S72.91XA Status: Acute (3) Hypokalemia ICD Code: E87.6 Status: Resolved (4) Hypocalcemia ICD Code: E83.51 Status: Resolved (5) Tobacco abuse ICD Code: Z72.0 Status: Chronic Assessment and Plan 1. Fall: s/p mechanical trip and fall, no LOC or head trauma reported. 2. Right Femur Fx: secondary to above, Femur X-ray w/ fracture mid shaft right femur. Hip/Pelvis X-ray with no hip fracture, midshaft right femur fracture, images reviewed by me. Dr. Wakefield consulted by ER 11/13 patient is sp ORIF of the right femoral shaft fracture. Patient states pain is uncontrolled. I will add IV Dilaudid for breakthrough pain. 3. Hypokalemia: K+ 2.7, s/p replacement in ER. Repeat ;levels normal. continue to monitor BMP. 4. Hypocalcemia: Ca 7.4, corrected 7.4, s/p replacement in ER. replaced. 5. Tobacco Abuse: Pt counselled. NicoDerm prn if needed. 6. DVT Prophylaxis: Anticoagulation post-op per Ortho 7. PNA/COPD Exacerbation.Patient is a chronic smoker. CXR has left perihilar airspace disease and BL wheezing on exam. Will order CT scan of the lungs due to h/o lung cancer. Start on IV Solumedrol and IV levaquin. Will also start on duoneb treatments and Symbicort. Provide supplemental o2 to keep o2 sat >92%. Dc fluids. 7. Social work for d/c planning as needed. Discharge Planning Patient is not medically clear for DC Problem Qualifiers (1) Fall: Qualified Code: W19.XXXA - Fall, initial encounter (2) Right femoral fracture: Jovanni Cornell MD Nov 14, 2016 16:25
[2016-11-14 17:21] LABS: HEMOGLOBIN A1a 1.1 %; HEMOGLOBIN A1b 1.5 %; HEMOGLOBIN Ao 84.4 %; HEMOGLOBIN LA1C 2.4 %
[2016-11-14] MEDS ORDERED: LEVOFLOXACIN 500 MG TAB PO SCH (18:00)
[2016-11-14] MEDS ORDERED: predniSONE 20 MG TAB PO SCH (18:00)
[2016-11-14] MEDS ORDERED: RESP: ALBUTEROL 2.5 MG/3 ML NEB (PRN) NEB (18:00)
[2016-11-14] MEDS: methylPREDNISolone SOD SUCC 40 MG/1 ML VIAL IV PUSH SCH (18:21)
[2016-11-14] MEDS: LEVOFLOXACIN 750 MG PREMIX INJ 150 ML IV SCH (18:22)
[2016-11-14] MEDS: AMITRIPTYLINE HCL 25 MG TAB PO SCH (20:06)
--- NOTE | 2016-11-14 20:35 | RADRPT ---
EXAM DATE/TIME: 11/14/2016 20:19 [place] COMPARISON: No previous studies available for comparison. INDICATIONS : Pneumonia. RADIATION DOSE: 9.08 CTDIvol (mGy) MEDICAL HISTORY : Chronic obstructive pulmonary disease. Myocardial infarction. Cardiovascular disease Hypertension. Angela ng cancer. Hepatitis C. SURGICAL HISTORY : Appendectomy. Cholecystectomy.Pacemaker. ENCOUNTER: Initial ACUITY: 1 day PAIN SCALE: 0/10 LOCATION: Bilateral chest TECHNIQUE: Volumetric scanning of the chest was performed. Using automated exposure control and adjustment of t he mA and/or kV according to patient size, radiation dose was kept as low as reasonably achievable to obtain optimal diagnostic quality images. DICOM format image data is available electronically for r eview and comparison. Follow-up recommendations for incidentally detected pulmonary nodules are based at a minimum on nodul e size and patient risk factors according to Fleischner Society Guidelines. FINDINGS: There are postoperative changes of partial right lung resection at the right upper lobe. There is vini e patchy groundglass opacity in the lungs especially in the left perihilar region but also involving the right lung. There is associated peribronchial thickening and some minimal cylindrical bronchiecta sis at the lung bases. Findings may represent a bronchopneumonia with bronchitis. No pleural pericardial effusion. Pacer leads present right atrium, right ventricle and coronary sinus . No pleural or pericardial effusion. No significant adenopathy. No acute findings in the upper abdomen. Previous cholecystectomy. CONCLUSION: 1. Scattered groundglass opacity in the lungs associated with some peribronchial thickening, minimal cylindrical bronchiectasis and some distal airway disease most characteristic of a bronchopneumonia. 2. Postoperative right upper lobectomy and right thoracotomy. Pacer leads in right atrium, right vent ricle and coronary sinus. Tobi Slater MD on November 14, 2016 at 20:27 Board Certified Radiologist. This report was verified electronically.
[2016-11-14] MEDS: RESP: ALBUTEROL 2.5 MG/IPRATROPIUM 0.5 MG NEB (SCH) NEB (21:09)
[2016-11-14] MEDS: BUDESONIDE-FORMOTEROL 160/4.5 MCG INHALER INH SCH (21:32)
[2016-11-15] VITALS (7 sets, daily range): BP systolic 121–126; BP diastolic 65–73; PULSE 67–84; RESP 16–18; TEMP 97.6–98.4; O2SAT 93–95
[2016-11-15] MEDS: POTASSIUM PHOSPHATE/SODIUM PHOSPHATE 250 MG TAB PO SCH ×4 (00:06→20:47)
[2016-11-15] MEDS: methylPREDNISolone SOD SUCC 40 MG/1 ML VIAL IV PUSH SCH ×4 (00:06→17:43)
[2016-11-15] MEDS: LEVOTHYROXINE SODIUM 75 MCG TAB PO SCH (05:38)
[2016-11-15] MEDS: INSULIN ASPART SUPPLEMENTAL SCALE SQ SCH ×4 (06:07→21:00)
[2016-11-15] MEDS: ENOXAPARIN SODIUM 30 MG/0.3 ML SYRINGE SQ SCH (08:26)
[2016-11-15] MEDS: MULTIVITAMINS/MINERALS THERAPEUTIC TAB PO SCH (08:26)
[2016-11-15] MEDS: DOCUSATE SODIUM 50 MG/SENNA 8.6 MG TAB PO SCH ×2 (08:26→20:47)
[2016-11-15] MEDS: SODIUM CHLORIDE 0.9% FLUSH 5 ML FLUSH IVF SCH ×2 (08:26→20:50)
[2016-11-15] MEDS: FUROSEMIDE 40 MG TAB PO SCH (08:26)
[2016-11-15] MEDS: METHADONE HCL 10 MG TAB PO SCH ×4 (08:27→20:49)
[2016-11-15] MEDS: BUDESONIDE-FORMOTEROL 160/4.5 MCG INHALER INH SCH ×2 (08:28→20:50)
[2016-11-15] MEDS: RESP: ALBUTEROL 2.5 MG/IPRATROPIUM 0.5 MG NEB (SCH) NEB ×4 (08:38→20:00)
[2016-11-15 08:49] LABS: HEMATOCRIT 35.7 % (39.0-51.0); MEAN CORPUSCULAR HEMOGLOBIN 32.4 PG (27.0-34.0); MEAN CORPUSCULAR HGB CONC 33.4 % (32.0-36.0); PLATELET COUNT 345 TH/MM3 (150-450); RED BLOOD COUNT 3.69 MIL/MM3 (4.50-5.90); RED CELL DISTRIBUTION WIDTH 14.1 % (11.6-17.2); REVIEW FLAG FINAL; WHITE BLOOD COUNT 13.2 TH/MM3 (4.0-11.0)
--- NOTE | 2016-11-15 09:20 | PD.ORT.PN ---
Subjective Post Op Day #: 2 Subjective Remarks improving. pain tolerable. Objective Vitals Vital Signs Date Time Temp Pulse Resp B/P Pulse Ox O2 Delivery O2 Flow Rate FiO2 11/15/16 08:39 95 21 11/15/16 08:00 98.4 67 18 124/73 94 11/15/16 00:40 97.9 72 17 126/72 95 11/14/16 20:57 98.9 76 17 152/81 95 11/14/16 16:00 99.2 70 16 112/66 92 11/14/16 11:06 99.0 63 16 133/78 92 I/O 11/14/16 11/14/16 11/14/16 11/15/16 11/15/16 11/15/16 07:00 15:00 23:00 07:00 15:00 23:00 Intake Total 360 ml 240 ml 360 ml 120 ml Output Total 850 ml 1350 ml 300 ml Balance -490 ml -1110 ml 60 ml 120 ml Intake Oral 360 ml 240 ml 360 ml 120 ml Output Urine Total 850 ml 1350 ml 300 ml # Voids 0 # Bowel Movements 0 1 0 0 Result Diagram: 11/15/16 0747 11/14/16 0750 Objective Remarks in bed, nad incison no erythema, no drainage thigh soft neg homans nvi Assessment & Plan Ortho Post Op Day #: 2 Problem List: Assessment and Plan s/p R Long Troch Nail for femoral shaft fx wbat daily dressing changes lovenox d/c planning snf vs home with c ortho stable and cleared for d/c f/up dr. vital 2 weeks Arturo Zamora Nov 15, 2016 09:20
[2016-11-15 09:27] LABS: BICARBONATE 29.3 MEQ/L (21.0-32.0)
[2016-11-15] MEDS: DEXT 5%-NACL 0.45% 1000 ML INJ 1,000 ML IV SCH ×2 (10:20→20:20)
[2016-11-15] MEDS: SODIUM CHLORIDE 0.9% FLUSH 5 ML FLUSH IVF PRN ×4 (12:31→17:43)
[2016-11-15] MEDS: MORPHINE SULFATE 4 MG/ML INJ IV PRN ×3 (13:43→21:34)
--- NOTE | 2016-11-15 16:35 | HHI.PR ---
Subjective Remarks Patient states cough is better denies fevers/chills o2 sats improving - 95% on room air. Objective Vitals Vital Signs Date Time Temp Pulse Resp B/P Pulse Ox O2 Delivery O2 Flow Rate FiO2 11/15/16 12:00 98.2 84 18 126/73 95 11/15/16 08:39 95 21 11/15/16 08:00 98.4 67 18 124/73 94 11/15/16 00:40 97.9 72 17 126/72 95 11/14/16 20:57 98.9 76 17 152/81 95 I/O 11/14/16 11/14/16 11/14/16 11/15/16 11/15/16 11/15/16 07:00 15:00 23:00 07:00 15:00 23:00 Intake Total 360 ml 240 ml 360 ml 120 ml 346 ml Output Total 850 ml 1350 ml 300 ml Balance -490 ml -1110 ml 60 ml 120 ml 346 ml Intake Oral 360 ml 240 ml 360 ml 120 ml IV Total 346 ml Output Urine Total 850 ml 1350 ml 300 ml # Voids 0 # Bowel Movements 0 1 0 0 Result Diagram: 11/15/16 0747 11/15/16 0747 Imaging Last Impressions Chest CT 11/14/16 0000 Signed Impressions: Service Date/Time: Monday, November 14, 2016 20:19 - CONCLUSION: 1. Scattered groundglass opacity in the lungs associated with some peribronchial thickening , minimal cylindrical bronchiectasis and some distal airway disease most characteristic of a bronchopneumonia. 2. Postoperative right upper lobectomy and right thoracotomy. Pacer leads in right atrium, right ventricle and coronary sinus. Tobi Slater MD Femur X-Ray 11/13/16 0000 Signed Impressions: Service Date/Time: Sunday, November 13, 2016 09:32 - CONCLUSION: Improved anatomic alignment following right femur ORIF. Richmond Lopez MD Hip and Pelvis X-Ray 11/12/161935 Signed Impressions: Service Date/Time: Saturday, November 12, 2016 19:47 - CONCLUSION: 1. No hip fracture. Mid shaft right femur fracture. Right iliac artery stent present. Surgical clips in the inguinal regions bilaterally. Tobi Slater MD Chest X-Ray 11/12/161935 Signed Impressions: Service Date/Time: Saturday, November 12, 2016 19:56 - CONCLUSION: 1. Left perihilar airspace disease. No effusion or pneumothorax. Tobi Slater MD Objective Remarks AAOx3, nad diffuse BL expiratory wheezing - mild rhonchi BL s1 s2 present RRR abdomen, soft, non tender right thigh has drape in place, there is no hematoma. Pedal pulses are palpable Procedures sp ORIF of Right femur fracture. Medications and IVs Current Medications Medications (Trade) Dose Ordered Sig/Morgan Route Start Time Stop Time Status Last Admin (Zofran Inj) 4 mg Q6H PRN IVP 11/12/16 22:00 (Morphine Inj) 2 mg Q3H PRN IV 11/12/16 22:00 11/15/16 13:43 (Roxicodone) 5 mg Q4H PRN PO 11/12/16 22:00 11/15/16 16:19 (Milk Of Magnesia Liq) 30 ml Q12H PRN PO 11/12/16 22:00 (Senokot) 17.2 mg Q12H PRN PO 11/12/16 22:00 (Dulcolax Supp) 10 mg DAILY PRN RECTAL 11/12/16 22:00 (Lactulose Liq) 30 ml DAILY PRN PO 11/12/16 22:00 (Elavil) 25 mg HS PO 11/13/16 21:00 11/14/16 20:06 (Lasix) 40 mg DAILY PO 11/13/16 09:00 11/15/16 08:26 (Synthroid) 75 mcg DAILY@07 PO 11/13/16 07:00 11/15/16 05:38 (Ativan) 1 mg BID PRN PO 11/12/16 22:00 11/12/16 23:07 Methadone HCl 25 mg 25 mg QID PO 11/13/16 09:00 11/15/16 16:19 (D5W-1/2 NS 1000 ml Inj) 1,000 ml @ 100 mls/hr Q10H IV 11/13/16 08:20 11/13/16 10:15 (NS Flush) 2 ml UNSCH PRN IVF 11/13/16 08:30 11/15/16 16:20 (NS Flush) 2 ml BID IVF 11/13/16 09:00 11/15/16 08:26 (Lovenox Inj) 30 mg Q24H SQ 11/14/16 09:00 11/15/16 08:26 (Antonette-Colace) 1 tab BID PO 11/13/16 09:00 11/15/16 08:26 Magnesium Hydroxide 10 ml 10 ml Q12H PRN PO 11/13/16 08:30 (Ancef Inj/NS Inj) 100 ml @ 200 mls/hr Q8H IV 11/13/16 17:00 11/15/16 16:18 Miscellaneous Information UNSCH PRN XX 11/13/16 08:30 (Morphine Inj) 3 mg Q3H PRN IV PUSH 11/13/16 08:30 11/14/16 19:12 (Zofran Inj) 4 mg Q4H PRN IVP 11/13/16 08:30 (Theragran M Tab) 1 tab DAILY PO 11/13/16 09:00 11/15/16 08:26 (Benadryl) 25 mg Q6H PRN PO 11/13/16 08:30 (Narcan Inj) 0.4 mg UNSCH PRN IV 11/13/16 08:30 (D50w (Vial) Inj) 50 ml UNSCH PRN IV 11/13/16 19:00 (Glucagon Inj) 1 mg UNSCH PRN OTHER 11/13/16 19:00 (Dilaudid Pf Inj) 1 mg Q4H PRN IV PUSH 11/13/16 19:00 Budesonide/ Formoterol Fumarate 2 puff 2 puff Q12HR INH 11/14/16 21:00 11/15/16 08:28 (Levaquin 750 Mg Premix Inj) 150 ml @ 100 mls/hr Q24H IV 11/14/16 18:00 11/14/16 18:22 (SoluMEDROL INJ) 40 mg Q6HR IV PUSH 11/14/16 18:00 11/15/16 12:27 (K-Phos Neutral) 250 mg Q8HR PO 11/14/16 23:30 11/15/16 12:27 Urinary Catheter: No Vascular Central Line Catheter: No A/P Problem List: (1) Fall ICD Code: W19.XXXA Status: Acute (2) Right femoral fracture ICD Code: S72.91XA Status: Acute (3) Hypokalemia ICD Code: E87.6 Status: Resolved (4) Hypocalcemia ICD Code: E83.51 Status: Resolved (5) Tobacco abuse ICD Code: Z72.0 Status: Chronic Assessment and Plan 1. Fall: s/p mechanical trip and fall, no LOC or head trauma reported. 2. Right Femur Fx: secondary to above, Femur X-ray w/ fracture mid shaft right femur. Hip/Pelvis X-ray with no hip fracture, midshaft right femur fracture, images reviewed by me. Dr. Wakefield consulted by ER 11/13 patient is sp ORIF of the right femoral shaft fracture. Patient states pain is uncontrolled. I will add IV Dilaudid for breakthrough pain. 3. Hypokalemia: K+ 2.7, s/p replacement in ER. Repeat ;levels normal. continue to monitor BMP. 4. Hypocalcemia: Ca 7.4, corrected 7.4, s/p replacement in ER. replaced. 5. Tobacco Abuse: Pt counselled. NicoDerm prn if needed. 6. DVT Prophylaxis: Anticoagulation post-op per Ortho 7. PNA/COPD Exacerbation.Patient is a chronic smoker. CXR has left perihilar airspace disease and BL wheezing on exam. Will order CT scan of the lungs due to h/o lung cancer. Start on IV Solumedrol and IV levaquin. Will also start on duoneb treatments and Symbicort. Provide supplemental o2 to keep o2 sat >92%. Dc fluids. 11/14 CT chest shows scattered rhonchi. Opacity in the lungs associated with some perirectal thickening, minimal cylindrical bronchiectasis and some distal airway disease most cursory state of bronchopneumonia. Postoperative right upper lobectomy and right thoracotomy. Continue IV Levaquin, taper dose of Solu -Medrol to every 48 hours and continue Symbicort. Continue to supplement oxygen as needed to keep oxygen saturation more than 92%. 7. Social work for d/c planning as needed. Discharge Planning DC in 1 to 2 days pending clinical improvement of COPD - patient still with BL wheezing. Patient wants to go home - needs C. Case management to assist. Problem Qualifiers (1) Fall: Qualified Code: W19.XXXA - Fall, initial encounter (2) Right femoral fracture: Jovanni Cornell MD Nov 15, 2016 16:34
[2016-11-15] MEDS: LEVOFLOXACIN 750 MG PREMIX INJ 150 ML IV SCH (17:44)
[2016-11-15] MEDS: AMITRIPTYLINE HCL 25 MG TAB PO SCH (20:47)
[2016-11-16] MEDS: methylPREDNISolone SOD SUCC 40 MG/1 ML VIAL IV PUSH SCH ×4 (00:06→18:24)
[2016-11-16 00:50] VITALS: BP 120/63; PULSE 79; RESP 16; TEMP 98.2; O2SAT 92
[2016-11-16] MEDS: SODIUM CHLORIDE 0.9% FLUSH 5 ML FLUSH IVF PRN ×3 (01:17→16:54)
[2016-11-16] MEDS: DEXT 5%-NACL 0.45% 1000 ML INJ 1,000 ML IV SCH ×2 (05:55→14:28)
[2016-11-16] MEDS: LEVOTHYROXINE SODIUM 75 MCG TAB PO SCH (05:55)
[2016-11-16] MEDS: POTASSIUM PHOSPHATE/SODIUM PHOSPHATE 250 MG TAB PO SCH ×2 (05:55→12:44)
[2016-11-16] MEDS: INSULIN ASPART SUPPLEMENTAL SCALE SQ SCH ×3 (06:06→16:00)
[2016-11-16] MEDS: RESP: ALBUTEROL 2.5 MG/IPRATROPIUM 0.5 MG NEB (SCH) NEB ×4 (07:25→20:00)
[2016-11-16 07:27] VITALS: O2SAT 96
[2016-11-16 07:39] VITALS: BP 131/70; PULSE 66; RESP 19; TEMP 97; O2SAT 94
[2016-11-16 08:22] LABS: HEMATOCRIT 31.9 % (39.0-51.0); MEAN CELL VOLUME 96.2 FL (80.0-100.0); MEAN CORPUSCULAR HEMOGLOBIN 32.9 PG (27.0-34.0); MEAN CORPUSCULAR HGB CONC 34.2 % (32.0-36.0); PLATELET COUNT 309 TH/MM3 (150-450); RED BLOOD COUNT 3.32 MIL/MM3 (4.50-5.90); RED CELL DISTRIBUTION WIDTH 14.3 % (11.6-17.2); REVIEW FLAG FINAL; WHITE BLOOD COUNT 17.2 TH/MM3 (4.0-11.0)
[2016-11-16 08:34] LABS: POTASSIUM 3.9 MEQ/L (3.5-5.1)
[2016-11-16] MEDS: MULTIVITAMINS/MINERALS THERAPEUTIC TAB PO SCH (08:52)
[2016-11-16] MEDS: FUROSEMIDE 40 MG TAB PO SCH (08:52)
[2016-11-16] MEDS: ENOXAPARIN SODIUM 30 MG/0.3 ML SYRINGE SQ SCH (08:52)
[2016-11-16] MEDS: SODIUM CHLORIDE 0.9% FLUSH 5 ML FLUSH IVF SCH (08:53)
[2016-11-16] MEDS: METHADONE HCL 10 MG TAB PO SCH ×3 (08:53→18:23)
[2016-11-16] MEDS: DOCUSATE SODIUM 50 MG/SENNA 8.6 MG TAB PO SCH (08:53)
[2016-11-16] MEDS: BUDESONIDE-FORMOTEROL 160/4.5 MCG INHALER INH SCH (08:54)
--- NOTE | 2016-11-16 08:54 | HHI.FF ---
Face to Face Verification Diagnosis: (1) Fracture, femur closed, shaft Physical Therapy Gait training, Safety evaluation, Transfer training, bed to chair Right LE Weight Bearing: WB as tolerated Nursing RN: 3 days/week x 2 weeks Nursing: Donn teaching, Dressing changes Dressing Changes: Daily dressing change I have seen patient Costa Gayle on 11/16/16. My clinical findings support the need for the requested home health care services because: Limited ability to care for self High risk of falls I certify that my clinical findings support that this patient is homebound because: Post-op weakness Unsteady gait/balance Artruo Zamora Nov 16, 2016 08:54
[2016-11-16] MEDS ORDERED: WALKER WHEELS/F1 MIS (08:55)
[2016-11-16 11:28] VITALS: BP 120/71; PULSE 65; RESP 19; TEMP 96.2; O2SAT 94
[2016-11-16] MEDS ORDERED: SYMB160A INH (13:12)
[2016-11-16] MEDS ORDERED: IPRA17I INH (13:12)
[2016-11-16] MEDS ORDERED: PRED20 PO (13:12)
[2016-11-16] MEDS ORDERED: LEVA750T9 PO (13:12)
[2016-11-16] MEDS ORDERED: VENTAER INH (13:12)
--- NOTE | 2016-11-16 13:13 | HHI.DCPOC ---
Discharge Care Plan Diagnosis: (1) Right femoral fracture Your Health Problems Are: Difficulty with ADL Exercise Tolerance Goals to Promote Your Health * To prevent worsening of your condition and complications * To maintain your health at the optimal level Directions to Meet Your Goals Take your medications as prescribed Follow your dietary instruction Follow activity as directed Keep your appointments as scheduled Take your immunizations and boosters as scheduled If your symptoms worsen call your PCP, if no PCP go to Urgent Care Center or Emergency Room Smoking is Dangerous to Your Health. Avoid second hand smoke Call the 24-hour hour crisis hotline for domestic abuse at Shorty Galvan MD Nov 16, 2016 13:13
--- NOTE | 2016-11-16 13:18 | HHI.DS ---
Discharge Summary Admission Date Nov 12, 2016 at 21:41 Discharge Date: Nov 16, 2016 Admitting Diagnosis R midshaft femur fx (1) Fall ICD Code: W19.XXXA Diagnosis: Principal (2) Right femoral fracture ICD Code: S72.91XA Diagnosis: Principal (3) Hypokalemia ICD Code: E87.6 Diagnosis: Principal (4) Hypocalcemia ICD Code: E83.51 Diagnosis: Principal (5) Tobacco abuse ICD Code: Z72.0 Diagnosis: Principal Procedures sp ORIF of Right femur fracture. Brief History - From Admission This is a 66-year-old male with a PMH of HTN, A. fib, Lung CA and Tobacco Abuse who was brought to the ER by EMS secondary to right leg pain following fall. Per pt he had mechanical trip and fall while walking on sidewalk, landed on right leg w/ immediate complaints of pain. No LOC or head trauma reported. On arrival, BP 122/70, HR 69, O2 sat 91% on RA, Afebrile. CBC essentially unremarkable. K+ 2.7. Ca 7.4. INR 1.0. UA negative. CXR with left perihilar airspace disease, no effusion or pneumonia. Femur X-ray with fracture midshaft right femur. Hip/Pelvis X-ray with no hip fracture, midshaft right femur fracture, right iliac artery stent present. Dr. Wakefield consulted by ER physician, plan is for surgical intervention in a.m. CBC/BMP: 11/16/16 0700 11/16/16 0700 Significant Findings Laboratory Tests Test 11/13/16 11/14/16 11/15/16 11/16/16 14:26 07:50 07:47 07:00 White Blood Count 17.1 TH/MM3 11.7 TH/MM3 13.2 TH/MM3 17.2 TH/MM3 (4.0-11.0) (4.0-11.0) (4.0-11.0) (4.0-11.0) Red Blood Count 3.82 MIL/MM3 3.54 MIL/MM3 3.69 MIL/MM3 3.32 MIL/MM3 (4.50-5.90) (4.50-5.90) (4.50-5.90) (4.50-5.90) Hemoglobin 12.4 GM/DL 11.4 GM/DL 11.9 GM/DL 10.9 GM/DL (13.0-17.0) (13.0-17.0) (13.0-17.0) (13.0-17.0) Hematocrit 37.5 % 34.3 % 35.7 % 31.9 % (39.0-51.0) (39.0-51.0) (39.0-51.0) (39.0-51.0) Neutrophils (%) (Auto) 94.1 % 78.0 % (16.0-70.0) (16.0-70.0) Lymphocytes (%) (Auto) 2.0 % (9.0-44.0) Neutrophils # (Auto) 16.1 TH/MM3 9.2 TH/MM3 (1.8-7.7) (1.8-7.7) Lymphocytes # (Auto) 0.3 TH/MM3 (1.0-4.8) Estimat Glomerular Filtration 88 ML/MIN (>89) Rate Random Glucose 158 MG/DL 146 MG/DL 131 MG/DL (74-106) (74-106) (74-106) Alkaline Phosphatase 130 U/L 122 U/L (45-117) (45-117) Albumin 2.5 GM/DL 2.3 GM/DL (3.4-5.0) (3.4-5.0) Monocytes (%) (Auto) 8.1 % (0.0-8.0) Monocytes # (Auto) 1.0 TH/MM3 (0-0.9) Sodium Level 134 MEQ/L (136-145) Calcium Level 8.2 MG/DL (8.5-10.1) Phosphorus Level 2.2 MG/DL (2.5-4.9) Imaging Last Impressions Chest CT 11/14/16 0000 Signed Impressions: Service Date/Time: Monday, November 14, 2016 20:19 - CONCLUSION: 1. Scattered groundglass opacity in the lungs associated with some peribronchial thickening , minimal cylindrical bronchiectasis and some distal airway disease most characteristic of a bronchopneumonia. 2. Postoperative right upper lobectomy and right thoracotomy. Pacer leads in right atrium, right ventricle and coronary sinus. Tobi Slater MD Femur X-Ray 11/13/16 0000 Signed Impressions: Service Date/Time: Sunday, November 13, 2016 09:32 - CONCLUSION: Improved anatomic alignment following right femur ORIF. Richmond Lopez MD Hip and Pelvis X-Ray 11/12/161935 Signed Impressions: Service Date/Time: Saturday, November 12, 2016 19:47 - CONCLUSION: 1. No hip fracture. Mid shaft right femur fracture. Right iliac artery stent present. Surgical clips in the inguinal regions bilaterally. Tobi Slater MD Chest X-Ray 11/12/161935 Signed Impressions: Service Date/Time: Saturday, November 12, 2016 19:56 - CONCLUSION: 1. Left perihilar airspace disease. No effusion or pneumothorax. Tobi Slater MD PE at Discharge GENERAL: Well-developed, well-nourished in no distress SKIN: Warm and dry. HEAD: Atraumatic. Normocephalic. EYES: Pupils equal and round. No scleral icterus. No injection or drainage. ENT: No nasal bleeding or discharge. Mucous membranes pink and moist. NECK: Trachea midline. No JVD. CARDIOVASCULAR: Regular rate and rhythm. RESPIRATORY: No accessory muscle use. Clear to auscultation. Breath sounds equal bilaterally. GASTROINTESTINAL: Abdomen soft, non-tender, nondistended. MUSCULOSKELETAL: Extremities without clubbing, cyanosis, or edema. No obvious deformities. Dry dressing right thigh NEUROLOGICAL: Awake and alert. No obvious cranial nerve deficits. Motor grossly within normal limits. Five out of 5 muscle strength in the arms and legs. Normal speech. PSYCHIATRIC: Appropriate mood and affect; insight and judgment normal. Hospital Course This is a 66-year-old male who presented to hospital s/p mechanical trip and fall sustained right Femur Fx sp ORIF of the right femoral shaft fracture. He is progressing well with therapy and will be discharged with home care. Hospital course complicated by PNA/COPD Exacerbation treated with Levaquin and steroids. Pt Condition on Discharge: Stable Discharge Disposition: Disch w/ Home Health Serv Discharge Time: > 30 minutes Discharge Instructions DIET: Follow Instructions for: As Tolerated, No Restrictions Activities you can perform: Weight Bearing as Efra Follow up Referrals: PCP Follow-up - 1 Week SNF/CUSTODIAL/ with [facility] - [phone] New Orders: X-RAY CHEST PA & LAT - 6 Weeks New Medications: Albuterol 18 GM Inh (Ventolin Hfa 18 GM Inh) 90 Mcg/Act Aer 2 PUFF INH Q4H PRN SHORTNESS OF BREATH #1 Ref 0 INHALER Enoxaparin Inj (Lovenox Inj) 30 Mg/0.3 Ml Syr 30 MG SQ DAILY Blood Clot Prevention #7 Ref 0 SYRINGE Ipratropium HFA 12.9 GM Inh (Atrovent HFA 12.9 GM Inh) 17 Mcg/Act Aer 2 PUFF INH Q6HR Breathing Treatment #1 Ref 0 INHALER Levofloxacin (Levaquin) 750 Mg Tablet 750 MG PO DAILY Infection #5 TAB Oxycodone (Oxycodone) 10 Mg Tab 10 MG PO Q4HR Pain Management #90 Ref 0 TAB Prednisone (Prednisone) 20 Mg Tab 40 MG PO DAILY Take 40 mg (2 tablets) daily for 5 days Control Inflammation #6 Ref 0 TAB Walker with Front Wheels (Walker with Front Wheels) 1 Mis Mis 1 EA .ROUTE DIRECTED #1 Ref 0 EA Budesonide-Formoterol Inh (Symbicort Inh) 160-4.5 Mcg/Act Aero 2 PUFF INH Q12HR Breathing Treatment #1 INHALER Continued Medications: Amitriptyline (Amitriptyline) 25 Mg Tab 25 MG PO HS TAB Furosemide (Furosemide) 40 Mg Tab 40 MG PO DAILY #30 Ref 0 TAB Levothyroxine (Levothyroxine) 75 Mcg Tab 75 MCG PO DAILY Thyroid #30 Ref 0 TAB Lorazepam (Ativan) 1 Mg Tab 1 MG PO BID PRN ANXIETY AND/OR AGITATION Ref 0 TAB Methadone (Methadone) 10 Mg Tab 25 MG PO QID Ref 0 TAB Oxcarbazepine (Trileptal) 150 Mg Tab 450 MG PO TID Seizure Control #60 Ref 0 TAB ([vitamin D]) 10 MG PO DAILY Shorty Galvan MD Nov 16, 2016 13:18
[2016-11-16 15:45] VITALS: BP 130/67; PULSE 67; RESP 19; TEMP 97; O2SAT 94
[2016-11-16] MEDS: LEVOFLOXACIN 750 MG PREMIX INJ 150 ML IV SCH (18:23)
== END 2016-11-16 21:14 | disposition home health service (06) | DRG 480 ==
LOC: HOR 19:19 → NEDA 21:41 → N06A 23:59 → N06B 11-14 09:01 → N06A 11-14 09:03
PROVIDERS: ADMIT Internal Medicine; ATTEND Internal Medicine
PROC: 0QS806Z Reposition Right Femoral Shaft with Intramedullary Internal Fixation Device, Open Approach (ICD-10-PCS; principal; 2016-11-13 08:16)
DX: S72.301A Unspecified fracture of shaft of right femur, initial encounter for closed fracture (principal); W01.0XXA Fall on same level from slipping, tripping and stumbling without subsequent striking against object, initial encounter; Y92.480 Sidewalk as the place of occurrence of the external cause; J44.0 Chronic obstructive pulmonary disease with (acute) lower respiratory infection; J18.9 Pneumonia, unspecified organism; J44.1 Chronic obstructive pulmonary disease with (acute) exacerbation; I48.91 Unspecified atrial fibrillation; Z79.02 Long term (current) use of antithrombotics/antiplatelets; Z85.118 Personal history of other malignant neoplasm of bronchus and lung; E83.51 Hypocalcemia; E87.6 Hypokalemia; I10 Essential (primary) hypertension; I73.9 Peripheral vascular disease, unspecified; Z95.0 Presence of cardiac pacemaker; F17.210 Nicotine dependence, cigarettes, uncomplicated
CPT/HCPCS: 71010; 71250; 73502; 73552; 76000; 80048; 80053; 81001; 82948; 83036; 83735; 84100; 85025; 85027; 85610; 85730; 86850; 86900; 86901; 93005; 94150; 94640; 94664; 96374; 96375; C1713; J0610; J0690; J1580; J1650; J1956; J2250; J2270; J2370; J2405; J2920; J3010; J3370; J7030; J7120; J7613